=== PATIENT | male | born 1975 | race Caucasian/White ===

== ENCOUNTER 2018-03-10 13:52 | Outpatient (CLI) | payer MEDICAID | END 2018-03-10 13:53 | disposition critical access hospital (66) | LOC: EMS 13:52 | PROVIDERS: ATTEND Surgery | DX: R25.1 Tremor, unspecified (principal); Z72.89 Other problems related to lifestyle | CPT/HCPCS: A0425; A0427 ==

== ENCOUNTER 2018-03-10 14:32 | Inpatient (IN) | payer MEDICAID ==
[2018-03-10] MEDS: LORazepam 2 MG/ML VIAL IVP STA ×2 (14:41→14:47)
[2018-03-10] MEDS ORDERED: THIAMINE INJ 100 MG, FOLIC ACID INJ 1 MG in SODIUM CHLORIDE 0.9% 100ML 100 ML IV STA (14:49)
[2018-03-10] MEDS ORDERED: MULTIVITAMIN 10 ML in SODIUM CHLORIDE 0.9% 1,000 ML IV STA (14:49)
[2018-03-10] MEDS ORDERED: MAGNESIUM SULFATE 2 GRAM 2 GM/50 ML BAG IV STA (14:49)
--- NOTE | 2018-03-10 14:52 | ED Physician Documentation ---
History of Present Illness - Stated complaint Stated Complaint: WITHDRAWL - Chief complaint Chief Complaint: Cardiac - History obtained from History obtained from: Patient, EMS - History of Present Illness Timing: Last night - Additonal information Additional information: 42-year-old alcoholic male has been drinking heavily over the past week. He has been drinking 2 fifths of wisky and gin plus high gravity beer daily. He decided last night to stop drinking he had his last drink about 10 PM and this morning he has had a seizure. He is brought to the hospital by ambulance being quite tremulous and diaphoretic. He states that he has had withdrawal seizure before and that he has had withdrawal hallucinations previously he has had to be detoxed in the hospital more than once. He has had hao psychotic episodes with alcohol withdrawal previously. He is required admission to psychiatric facility. Review of Systems Constitutional: reports: Sweats. denies: Fever Eyes: denies: Decreased vision Ears: denies: Ear pain Nose: denies: Rhinorrhea / runny nose, Congestion Throat: denies: Sore throat Cardiac: denies: Chest pain / pressure, Palpitations Respiratory: denies: Dyspnea, Cough GI: denies: Abdominal Pain, Nausea, Vomiting : denies: Dysuria, Frequency Skin: denies: Rash Musculoskeletal: denies: Neck pain, Back pain, Extremity pain Neurologic: denies: Generalized weakness, Focal weakness, Numbness PD PAST MEDICAL HISTORY - Present Medications Home Medications: Ambulatory Orders Medication Instructions Recorded Confirmed No Known Home Medications [No 03/10/18 03/10/18 Known Home Medications] - Allergies Allergies/Adverse Reactions: Allergies Allergy/AdvReac Type Severity Reaction Status Date / Time No Known Drug Allergies Allergy Verified 03/10/18 14:47 PD ED PE NORMAL - Vitals Vital signs reviewed: Yes (hypertensive ) - General General: Alert and oriented X 3, Well developed/nourished, Other (shaking violently diaphoretic and talking in short sentences interupted by hiccups and burping. ) - HEENT HEENT: Atraumatic, PERRL, EOMI - Neck Neck: Supple, no meningeal sign - Cardiac Cardiac: RRR, No murmur - Respiratory Respiratory: No respiratory distress, Clear bilaterally - Abdomen Abdomen: Soft, Non tender - Back Back: No CVA TTP, No spinal TTP - Derm Derm: Normal color, Warm and dry, Other (diaphoretic) - Extremities Extremities: No deformity, No edema - Neuro Neuro: No motor deficit, No sensory deficit Eye Opening: Spontaneous Motor: Obeys Commands Verbal: Oriented GCS Score: 15 - Psych Psych: Normal mood, Normal affect Results - Vitals Vitals: Vital Signs - 24 hr 03/10/18 03/10/18 14:42 17:03 Temperature 36.3 C L Heart Rate 90 69 Respiratory 18 16 Rate Blood Pressure 132/100 H 145/94 H O2 Saturation 98 96 Oxygen O2 Source Room air - Labs Labs: Laboratory Tests 03/10/18 03/10/18 03/10/18 14:50 15:07 15:07 WBC 6.1 RBC 4.39 L Hgb 14.3 Hct 41.3 L MCV 94.1 H MCH 32.6 H MCHC 34.6 RDW 13.2 Plt Count 158 MPV 8.1 Neut # 4.8 Lymph # 0.6 L Dane # 0.6 Eos # 0.0 Baso # 0.0 Absolute Nucleated RBC 0.00 Nucleated RBC % 0.1 Sodium 134 L Potassium 3.4 L Chloride 99 L Carbon Dioxide 24 Anion Gap 11.0 BUN 18 Creatinine 0.8 Estimated GFR (MDRD) 105 Glucose 118 H Calcium 8.8 Total Bilirubin 2.3 H AST 227 H ALT 198 H Alkaline Phosphatase 44 Troponin I < 0.04 Total Protein 6.8 Albumin 4.5 Globulin 2.3 Albumin/Globulin Ratio 2.0 Lipase 38 Salicylates < 6.0 Acetaminophen < 10 L Ethyl Alcohol < 5.0 PD MEDICAL DECISION MAKING - ED course Complexity details: reviewed old records, reviewed results, re-evaluated patient , considered differential, d/w patient, d/w family ED course: 42-year-old alcoholic male with a prior history of severe DTs with withdrawal has had a seizure today after stopping drinking last night. He arrives to the emergency department shaking and diaphoretic. He is administered Ativan 2 mg intravenously with marked improvement in his shaking but he continues to have visual hallucinations. He is administered a banana bag intravenously. He is accompanied here by his mother today who indicates that previously he has required inpatient detoxification and outpatient detoxification has resulted in some precarious moments. Departure - Departure Disposition: 66 [facility] DC/Xfer Clinical Impression: Alcohol withdrawal delirium, acute, hyperactive Condition: Serious
[2018-03-10 15:47] LABS: BASOPHILS % (AUTO) 0.6 %; EOSINOPHILS % (AUTO) 0.5 %; HGB - HEMOGLOBIN 14.3 g/dL (14.0-18.0); LYMPHOCYTES # (AUTO) 0.6 10^3/uL (1.5-3.5); LYMPHOCYTES % (AUTO) 9.4 %; MEAN CORPUSCULAR HEMOGLOBIN 32.6 pg (27.0-31.0); MEAN CORPUSCULAR HGB CONC 34.6 g/dL (32.0-36.0); MEAN CORPUSCULAR VOLUME 94.1 fL (80.0-94.0); MEAN PLATELET VOLUME 8.1 fL (7.4-11.4); MONOCYTES # (AUTO) 0.6 10^3/uL (0.0-1.0); MONOCYTES % (AUTO) 10.5 %; NEUTROPHILS # (AUTO) 4.8 10^3/uL (1.5-6.6); PLT - PLATELET COUNT 158 10^3/uL (130-450); RED BLOOD COUNT 4.39 10^6/uL (4.70-6.10); RED CELL DISTRIBUTION WIDTH 13.2 % (12.0-15.0); WHITE BLOOD COUNT 6.1 x10^3/uL (4.8-10.8)
[2018-03-10 16:13] LABS: ALBUMIN 4.5 g/dL (3.2-5.5); ALKALINE PHOSPHATASE 44 IU/L (42-121); ALT ALANINE AMINOTRANSFERASE 198 IU/L (10-60); AST ASPARTATE AMINOTRANSFERASE 227 IU/L (10-42); BILIRUBIN,TOTAL 2.3 mg/dL (0.2-1.0); BUN - BLOOD UREA NITROGEN 18 mg/dL (6-20); CALCIUM 8.8 mg/dL (8.5-10.3); CARBON DIOXIDE - CO2 24 mmol/L (21-32); CHLORIDE 99 mmol/L (101-111); CREATININE 0.8 mg/dL (0.6-1.2); GFR - MDRD 105 (>89); GLUCOSE 118 mg/dL (70-100); LIPASE 38 U/L (22-51); SALICYLATE < 6.0 mg/dL; SODIUM 134 mmol/L (135-145); TOTAL PROTEIN 6.8 g/dL (6.7-8.2)
[2018-03-10 16:32] LABS: ACETAMINOPHEN < 10 ug/mL (10-30)
[2018-03-10] MEDS ORDERED: PROCHLORPERAZINE 10 MG/2 ML VIAL IVP PRN (17:48)
[2018-03-10 18:16] LABS: INR 0.9 (0.8-1.2); PT - PROTHROMBIN TIME 10.7 secs (9.9-12.6)
[2018-03-10] MEDS: D5NS W/20 MEQ KCL 1,000 ML IV SCH (18:24)
[2018-03-10] MEDS: LORazepam 2 MG/ML VIAL IVP PRN ×5 (20:50→23:38)
[2018-03-10 21:50] LABS: MUDS CUTOFF CONCENTRATIONS CUTOFF CONC BELOW:
[2018-03-10 21:54] LABS: BILIRUBIN,URINE NEGATIVE (NEGATIVE); GLUCOSE, URINE (UA) NEGATIVE (NEGATIVE); KETONES,URINE (UA) 15 mg/dL (NEGATIVE); LEUKOCYTE ESTERASE, URINE NEGATIVE (NEGATIVE); NITRITE,URINE NEGATIVE (NEGATIVE); OCCULT BLOOD,URINE NEGATIVE (NEGATIVE); PH,URINE >=9.0 PH (5.0-7.5); PROTEIN,URINE TRACE mg/dL (NEGATIVE); UROBILINOGEN,URINE 2 E.U./dL (NORMAL)
[2018-03-10 22:04] LABS: CLARITY,URINE CLOUDY (CLEAR)
[2018-03-10] MEDS: PANTOPRAZOLE 40 MG VIAL IVP SCH (22:04)
[2018-03-10 22:10] LABS: AMORPHOUS SEDIMENT,UR Moderate /LPF; BACTERIA,URINE Few /HPF (None Seen); RBC,URINE None Seen /HPF (0-5); SQUAMOUS EPITHELIAL CELL,UR NONE SEEN (<= Few)
[2018-03-10 22:11] LABS: MUCUS,URINE Few Strands
[2018-03-10 22:21] LABS: AMPHETAMINE SCREEN,URINE NEGATIVE (NEGATIVE); BENZODIAZEPINES SCREEN, URINE POSITIVE (NEGATIVE); COCAINE SCREEN URINE NEGATIVE (NEGATIVE); METHAMPHETAMINES SCREEN, URINE NEGATIVE (NEGATIVE); OPIATE SCREEN, URINE NEGATIVE (NEGATIVE)
[2018-03-10 22:22] LABS: METHADONE SCREEN, URINE NEGATIVE (NEGATIVE); OXYCODONE SCREEN, URINE NEGATIVE (NEGATIVE); PROPOXYPHENE SCREEN, URINE NEGATIVE (NEGATIVE); TRICYCLIC ANTIDEPRESSANT,URINE NEGATIVE (NEGATIVE)
[2018-03-11] MEDS: LORazepam 2 MG/ML VIAL IVP PRN ×13 (00:13→22:22)
--- NOTE | 2018-03-11 00:59 | HISTORY & PHYSICAL EXAMINATION ---
DATE OF SERVICE: 03/10/2018 Physician: Mercedes Avalos MD HISTORY OF PRESENT ILLNESS: This is a 42-year-old white male with a negative past medical history except alcohol abuse and prior alcohol withdrawal with seizures requiring hospitalization. The patient has had binge drinking for the past 1 week, drinking all day with no other nutritional intake, and he decided yesterday that "enough is enough." He was actually "hiding from his family while drinking. Therefore, he knew he had to stop." He stopped drinking completely, had his last drink at 10 p.m. yesterday and today has been tremulous , has had visual hallucinations and had a witnessed seizure. His mother accompanies him to the emergency room and states that he has had seizures before and that he requires detoxification in the hospital. According to her statement in the ER, he has had "hao psychotic episodes during alcohol withdrawal previously." PAST MEDICAL HISTORY: Alcoholism and alcohol withdrawal, including alcohol withdrawal seizures. MEDICATIONS AT HOME: None. ALLERGIES: NONE. FAMILY HISTORY: No inherited diseases. SOCIAL HISTORY: Heavy alcohol use, which includes 2 fifths of whiskey, gin and high-gravity beer daily. Nonsmoker; he quit 4 years ago. No illicit drug use. REVIEW OF SYSTEMS: The patient currently describes a burning sensation in the back of his throat and upper chest area with swallowing. He currently has hiccups. There is no abdominal pain, no diarrhea or melena. He denies shortness of breath or cardiac symptoms , even palpitations. A comprehensive review of systems was performed, from the patient, and all other organs are negative. PHYSICAL EXAMINATION GENERAL: Middle-aged white male who is having hiccups. He appears excessively tanned. He is in no distress currently. VITAL SIGNS: Blood pressure 150/90, heart rate 65-75 in sinus rhythm, afebrile , room air saturation 97%. HEENT: Reveals dry oral mucosa and tongue. NECK: Without lymphadenopathy, JVD, or carotid bruits. LUNGS: Clear. HEART: Sounds normal. ABDOMEN: Soft, nontender. No organomegaly. EXTREMITIES: No edema. NEUROLOGIC: Intact currently, but there were hallucinations earlier today as well as a seizure earlier today. LABORATORY DATA: Sodium 134, potassium 3.4, BUN 18, creatinine 0.8, AST 227, ALT 198, bilirubin 2.3. Lipase normal at 38. Troponin not detected at less than 0.04. INR is normal at 0.9. White blood count and differential normal. Hemoglobin 14.3 with a high MCV of 94. Platelet count normal at 158. Serum toxicology showed no detectable aspirin, Tylenol, or alcohol level. No EKG was done. No chest x-ray was done. IMPRESSION/DIAGNOSES 1. Alcohol withdrawal seizures. 2. Alcohol abuse with elevation of liver function tests and bilirubin but normal INR. 3. Evidence of dehydration on clinical exam. PLAN: 1. Admit the patient to the ICU given the seizures and start close monitoring, [id number] vital sign and neurologic checks. 2. Put him on a CIWA protocol and administer Ativan liberally for 48-72 hours to get him through his alcohol detoxification. The Ativan will also help his hiccups. 3. Begin IV fluids. Oral diet will be ice chips only if he is somnolent, otherwise, advance his diet as tolerated. 4. Follow his liver tests and electrolytes daily. 5. Replace potassium, thiamine, and folate. 6. Social work consultation for alcohol rehabilitation. DEEP VENOUS THROMBOSIS PROPHYLAXIS: SCDs. CODE STATUS: FULL CODE. ATTESTATION: The patient is expected to be discharged or transferred to another facility within 96 hours: Yes. TD: 03/10/2018 20:37 JOSEPH
[2018-03-11] MEDS: SODIUM CHLORIDE FLUSH 0.9% 10 ML SYRINGE IVP SCH ×3 (01:08→17:02)
[2018-03-11] MEDS: HYDROmorphone 0.5 MG/0.5 ML SYRINGE IVP PRN ×2 (01:34→11:30)
[2018-03-11] MEDS: D5NS W/20 MEQ KCL 1,000 ML IV SCH ×3 (02:17→19:36)
[2018-03-11 05:10] LABS: EOSINOPHILS # (AUTO) 0.3 10^3/uL (0.0-0.7); HGB - HEMOGLOBIN 13.4 g/dL (14.0-18.0); LYMPHOCYTES % (AUTO) 21.5 %; MEAN CORPUSCULAR HEMOGLOBIN 31.8 pg (27.0-31.0); MEAN CORPUSCULAR HGB CONC 33.2 g/dL (32.0-36.0); MEAN CORPUSCULAR VOLUME 95.8 fL (80.0-94.0); MEAN PLATELET VOLUME 8.1 fL (7.4-11.4); MONOCYTES # (AUTO) 0.4 10^3/uL (0.0-1.0); MONOCYTES % (AUTO) 8.3 %; NEUTROPHILS # (AUTO) 2.8 10^3/uL (1.5-6.6); NEUTROPHILS % (AUTO) 62.2 %; PLT - PLATELET COUNT 122 10^3/uL (130-450); RED BLOOD COUNT 4.22 10^6/uL (4.70-6.10); RED CELL DISTRIBUTION WIDTH 13.2 % (12.0-15.0); WHITE BLOOD COUNT 4.5 x10^3/uL (4.8-10.8)
[2018-03-11 05:14] LABS: INR 0.9 (0.8-1.2); PT - PROTHROMBIN TIME 10.6 secs (9.9-12.6)
[2018-03-11 05:19] LABS: ALBUMIN 3.9 g/dL (3.2-5.5); BILIRUBIN,TOTAL 1.8 mg/dL (0.2-1.0); CALCIUM 8.3 mg/dL (8.5-10.3); CREATININE 0.7 mg/dL (0.6-1.2); MAGNESIUM 2.6 mg/dL (1.7-2.8); TOTAL PROTEIN 5.9 g/dL (6.7-8.2)
[2018-03-11] MEDS: THIAMINE INJ 100 MG, FOLIC ACID INJ 1 MG in SODIUM CHLORIDE 0.9% 100ML 100 ML IV SCH (09:05)
[2018-03-11] MEDS: PANTOPRAZOLE 40 MG VIAL IVP SCH ×2 (09:27→21:00)
[2018-03-11] MEDS: PRENATAL VITAMIN TABLET PO SCH (09:30)
--- NOTE | 2018-03-11 16:47 | PROVIDER PROGRESS NOTE ---
Assessment/Plan - Problem List (1) Alcohol withdrawal delirium, acute, hyperactive Assessment/Plan: Pt on a CIWA protocol. Is sleeping, after Ativan. Continue to monitor. Pt was given some contacts for outpt management of Alcoholism. (2) Alcohol withdrawal seizure Assessment/Plan: No further seizures since admitted to ICU. (3) Abnormal LFTs Assessment/Plan: Likely from alcohol use, as there are no signs of obstruction clibnically. Continue to monitor labs. - Current Meds Current Meds: Current Medications Generic Name Dose Route Start Last Admin Trade Name Freq PRN Reason Stop Dose Admin Hydromorphone HCl 0.5 mg 03/10/18 17:48 03/11/18 11:30 Dilaudid Inj Syringe IVP 0.5 mg Q2H PRN Administration Pain 8 to 10 Potassium Chloride/Dextrose/Sod Cl 1,000 mls @ 125 mls/hr 03/10/18 18:00 16:00 IV 125 mls/hr .Q8H LIDA Infusion Thiamine HCl 100 mg/ Folic 101.2 mls @ 50.6 mls/hr 03/11/18 09:00 03/11/18 11 :05 Acid 1 mg/ Sodium Chloride IV Infused DAILY L[facility] Infusion Lorazepam 2 mg 03/10/18 17:56 03/11/18 05:07 Ativan Inj (Vial) IVP 2 mg Q30M PRN Administration CIWA >8 Protocol Pantoprazole Sodium 40 mg 03/10/18 21:00 03/11/18 09:27 Protonix IVP 40 mg BID LIDA Administration Multivit/Folic Acid/Iron 1 tab 03/11/18 09:00 03/11/18 09:30 Trinatal Rx 1 PO 1 tab DAILY LIDA Administration Prochlorperazine Edisylate 10 mg 03/10/18 17:48 03/11/18 03:27 Compazine Inj IVP 10 mg Q6HR PRN Administration Nausea / Vomiting Sodium Chloride 10 ml 03/11/18 01:00 03/11/18 09:06 Normal Saline Flush 0.9% IVP 10 ml 0100,0900,1700 LIDA Administration - Lab Result Fish Bone Diagrams: 03/11/18 04:55 03/11/18 04:55 - Additional Planning My Orders: My Active Orders 03/10/18 17:56 LORazepam INJ [Ativan Inj (Vial)] 2 mg IVP Q30M PRN 03/10/18 17:57 CIWA - AR Score Card [RC] Q2H Q2H Neuro Check [RC] QSHIFT QSHIFT 03/11/18 09:00 Vitamin [Trinatal Rx 1] 1 tab PO DAILY Thiamine Inj [Vitamin B-1 Inj] 100 mg Folic Acid Inj 1 mg Sodium Chloride 0.9 % 100Ml [Normal Saline 0.9% 100Ml] 100 ml IV DAILY 03/11/18 Lunch DIET [Soft (Low Fiber) Diet] [DIET] Subjective - Subjective Patient Reports: Other (Sleeping) Nursing Reports: Other (Hiccups have stopped. Pt too sleepy to try a meal.) Objective Vital Signs: Vital Signs - 24 hr 03/10/18 03/10/18 03/10/18 18:00 18:30 18:55 Temperature 37 C Heart Rate 69 72 66 Heart Rate [ Monitoring electrodes] Respiratory 20 16 17 Rate Blood Pressure 147/91 H 148/86 H 150/89 H Blood Pressure [Right Brachial artery] O2 Saturation 97 97 97 03/10/18 03/10/18 03/10/18 20:00 22:00 23:00 Temperature 36.8 C Heart Rate Heart Rate [ 65 75 73 Monitoring electrodes] Respiratory 17 21 20 Rate Blood Pressure Blood Pressure 164/101 H 150/104 H 158/92 H [Right Brachial artery] O2 Saturation 98 97 97 03/11/18 03/11/18 03/11/18 00:00 01:00 02:00 Temperature 36.7 C Heart Rate Heart Rate [ 69 73 78 Monitoring electrodes] Respiratory 22 26 H 16 Rate Blood Pressure Blood Pressure 173/109 H 152/94 H 154/88 H [Right Brachial artery] O2 Saturation 97 97 99 03/11/18 03/11/18 03/11/18 03:00 04:00 05:00 Temperature 36.8 C Heart Rate Heart Rate [ 72 78 72 Monitoring electrodes] Respiratory 17 24 17 Rate Blood Pressure Blood Pressure 158/94 H 133/92 H 137/91 H [Right Brachial artery] O2 Saturation 97 95 97 03/11/18 03/11/18 03/11/18 06:00 07:00 08:00 Temperature 36.7 C Heart Rate Heart Rate [ 70 72 75 Monitoring electrodes] Respiratory 23 23 21 Rate Blood Pressure Blood Pressure 134/92 H 135/95 H 142/101 H [Right Brachial artery] O2 Saturation 96 97 96 03/11/18 03/11/18 03/11/18 09:00 10:00 11:00 Temperature Heart Rate Heart Rate [ 79 69 70 Monitoring electrodes] Respiratory 21 21 25 H Rate Blood Pressure Blood Pressure 140/97 H 157/105 H 160/111 H [Right Brachial artery] O2 Saturation 98 98 98 03/11/18 03/11/18 03/11/18 12:00 13:00 14:00 Temperature 36.7 C Heart Rate Heart Rate [ 73 75 67 Monitoring electrodes] Respiratory 23 20 18 Rate Blood Pressure Blood Pressure 141/92 H 142/95 H 146/106 H [Right Brachial artery] O2 Saturation 96 98 96 03/11/18 03/11/18 15:00 16:00 Temperature Heart Rate Heart Rate [ 67 59 L Monitoring electrodes] Respiratory 14 18 Rate Blood Pressure Blood Pressure 139/101 H 142/103 H [Right Brachial artery] O2 Saturation 96 96 Oxygen O2 Source Room air I&O (Last 24 Hrs): Intake and Output Totals x24h 03/09/18 03/10/18 03/11/18 23:59 23:59 23:59 Intake Total 1585 2149.065 Output Total 1200 1475 Balance 385 674.065 General: Other (Somnolent) HEENT: Mucous membr. moist/pink Neck: Supple Cardiovascular: Regular rate, No murmurs Respiratory: No respiratory distress Abdomen: Soft Extremities: No edema - Results Results: Laboratory Results WBC 4.5 x10^3/uL (4.8-10.8) L 03/11/18 04:55 RBC 4.22 10^6/uL (4.70-6.10) L 03/11/18 04:55 Hgb 13.4 g/dL (14.0-18.0) L 03/11/18 04:55 Hct 40.4 % (42.0-52.0) L 03/11/18 04:55 MCV 95.8 fL (80.0-94.0) H 03/11/18 04:55 MCH 31.8 pg (27.0-31.0) H 03/11/18 04:55 MCHC 33.2 g/dL (32.0-36.0) 03/11/18 04:55 RDW 13.2 % (12.0-15.0) 03/11/18 04:55 Plt Count 122 10^3/uL (130-450) L 03/11/18 04:55 MPV 8.1 fL (7.4-11.4) 03/11/18 04:55 Neut # 2.8 10^3/uL (1.5-6.6) 03/11/18 04:55 Lymph # 1.0 10^3/uL (1.5-3.5) L 03/11/18 04:55 Rush # 0.4 10^3/uL (0.0-1.0) 03/11/18 04:55 Eos # 0.3 10^3/uL (0.0-0.7) 03/11/18 04:55 Baso # 0.0 10^3/uL (0.0-0.1) 03/11/18 04:55 Absolute Nucleated RBC 0.00 x10^3/uL 03/11/18 04:55 Nucleated RBC % 0.0 /100WBC 03/11/18 04:55 PT 10.6 secs (9.9-12.6) 03/11/18 04:55 INR 0.9 (0.8-1.2) 03/11/18 04:55 Sodium 137 mmol/L (135-145) 03/11/18 04:55 Potassium 3.8 mmol/L (3.5-5.0) 03/11/18 04:55 Chloride 105 mmol/L (101-111) 03/11/18 04:55 Carbon Dioxide 24 mmol/L (21-32) 03/11/18 04:55 Anion Gap 8.0 (6-13) 03/11/18 04:55 BUN 15 mg/dL (6-20) 03/11/18 04:55 Creatinine 0.7 mg/dL (0.6-1.2) 03/11/18 04:55 Estimated GFR (MDRD) 123 (>89) 03/11/18 04:55 Glucose 122 mg/dL (70-100) H 03/11/18 04:55 Calcium 8.3 mg/dL (8.5-10.3) L 03/11/18 04:55 Magnesium 2.6 mg/dL (1.7-2.8) 03/11/18 04:55 Total Bilirubin 1.8 mg/dL (0.2-1.0) H 03/11/18 04:55 GGT 55 IU/L (8-55) 03/11/18 04:55 AST 155 IU/L (10-42) H 03/11/18 04:55 ALT 165 IU/L (10-60) H 03/11/18 04:55 Alkaline Phosphatase 40 IU/L (42-121) L 03/11/18 04:55 Troponin I < 0.04 ng/mL (<0.49) 03/10/18 15:07 Total Protein 5.9 g/dL (6.7-8.2) L 03/11/18 04:55 Albumin 3.9 g/dL (3.2-5.5) 03/11/18 04:55 Globulin 2.0 g/dL (2.1-4.2) L 03/11/18 04:55 Albumin/Globulin Ratio 2.0 (1.0-2.2) 03/11/18 04:55 Lipase 38 U/L (22-51) 03/10/18 15:07 Urine Color YELLOW 03/10/18 20:00 Urine Clarity CLOUDY (CLEAR) 03/10/18 20:00 Urine pH >=9.0 PH (5.0-7.5) H 03/10/18 20:00 Ur Specific [place] 1.010 (1.002-1.030) 03/10/18 20:00 Urine Protein TRACE mg/dL (NEGATIVE) 03/10/18 20:00 Urine Glucose (UA) NEGATIVE mg/dL (NEGATIVE) 03/10/18 20:00 Urine Ketones 15 mg/dL (NEGATIVE) H 03/10/18 20:00 Urine Occult Blood NEGATIVE (NEGATIVE) 03/10/18 20:00 Urine Nitrite NEGATIVE (NEGATIVE) 03/10/18 20:00 Urine Bilirubin NEGATIVE (NEGATIVE) 03/10/18 20:00 Urine Urobilinogen 2 E.U./dL (NORMAL) H 03/10/18 20:00 Ur Leukocyte Esterase NEGATIVE (NEGATIVE) 03/10/18 20:00 Urine RBC None Seen /HPF (0-5) 03/10/18 20:00 Urine WBC 0-3 /HPF (0-3) 03/10/18 20:00 Ur Squamous Epith Cells NONE SEEN (<= Few) 03/10/18 20:00 Amorphous Sediment Moderate /LPF 03/10/18 20:00 Urine Bacteria Few /HPF (None Seen) 03/10/18 20:00 Urine Mucus Few Strands 03/10/18 20:00 Ur Microscopic Review INDICATED 03/10/18 20:00 Urine Culture Comments NOT INDICATED 03/10/18 20:00 Salicylates < 6.0 mg/dL 03/10/18 15:07 Urine Opiates Screen NEGATIVE (NEGATIVE) 03/10/18 20:00 Ur Oxycodone Screen NEGATIVE (NEGATIVE) 03/10/18 20:00 Urine Methadone Screen NEGATIVE (NEGATIVE) 03/10/18 20:00 Ur Propoxyphene Screen NEGATIVE (NEGATIVE) 03/10/18 20:00 Acetaminophen < 10 ug/mL (10-30) L 03/10/18 15:07 Ur Barbiturates Screen NEGATIVE (NEGATIVE) 03/10/18 20:00 Ur Tricyclics Screen NEGATIVE (NEGATIVE) 03/10/18 20:00 Ur Phencyclidine Scrn NEGATIVE (NEGATIVE) 03/10/18 20:00 Ur Amphetamine Screen NEGATIVE (NEGATIVE) 03/10/18 20:00 U Methamphetamines Scrn NEGATIVE (NEGATIVE) 03/10/18 20:00 U Benzodiazepines Scrn POSITIVE (NEGATIVE) H 03/10/18 20:00 Urine Cocaine Screen NEGATIVE (NEGATIVE) 03/10/18 20:00 U Cannabinoids Screen NEGATIVE (NEGATIVE) 03/10/18 20:00 Ethyl Alcohol < 5.0 mg/dL 03/10/18 15:07 ABX Reporting Has patient been on IV antibiotics over the past 48 hours?: No
[2018-03-11] MEDS: hydrALAZINE INJ 20 MG/ML VIAL IVP SCH ×2 (17:25→21:00)
[2018-03-12] MEDS: LORazepam 2 MG/ML VIAL IVP PRN ×4 (00:25→05:50)
[2018-03-12] MEDS: SODIUM CHLORIDE FLUSH 0.9% 10 ML SYRINGE IVP SCH ×4 (01:09→21:03)
[2018-03-12] MEDS: HYDROmorphone 0.5 MG/0.5 ML SYRINGE IVP PRN (01:55)
[2018-03-12] MEDS: D5NS W/20 MEQ KCL 1,000 ML IV SCH ×5 (03:49→21:07)
[2018-03-12 04:35] LABS: BASOPHILS # (AUTO) 0.2 10^3/uL (0.0-0.1); BASOPHILS % (AUTO) 3.5 %; EOSINOPHILS # (AUTO) 0.4 10^3/uL (0.0-0.7); EOSINOPHILS % (AUTO) 9.4 %; HGB - HEMOGLOBIN 14.2 g/dL (14.0-18.0); LYMPHOCYTES # (AUTO) 0.7 10^3/uL (1.5-3.5); MEAN CORPUSCULAR HGB CONC 33.6 g/dL (32.0-36.0); MEAN CORPUSCULAR VOLUME 95.1 fL (80.0-94.0); MEAN PLATELET VOLUME 8.3 fL (7.4-11.4); MONOCYTES # (AUTO) 0.4 10^3/uL (0.0-1.0); MONOCYTES % (AUTO) 9.1 %; NEUTROPHILS # (AUTO) 2.7 10^3/uL (1.5-6.6); PLT - PLATELET COUNT 118 10^3/uL (130-450); RED BLOOD COUNT 4.45 10^6/uL (4.70-6.10); RED CELL DISTRIBUTION WIDTH 13.1 % (12.0-15.0); WHITE BLOOD COUNT 4.4 x10^3/uL (4.8-10.8)
[2018-03-12 04:43] LABS: ALBUMIN/GLOBULIN RATIO 1.7 (1.0-2.2); BILIRUBIN,TOTAL 1.3 mg/dL (0.2-1.0); CALCIUM 8.8 mg/dL (8.5-10.3); CREATININE 0.6 mg/dL (0.6-1.2); MAGNESIUM 2.1 mg/dL (1.7-2.8); TOTAL PROTEIN 6.3 g/dL (6.7-8.2)
[2018-03-12] MEDS: PRENATAL VITAMIN TABLET PO SCH (08:51)
[2018-03-12] MEDS: SODIUM CHLORIDE FLUSH 0.9% 10 ML SYRINGE IVP PRN ×2 (08:52→21:03)
[2018-03-12] MEDS: PANTOPRAZOLE 40 MG VIAL IVP SCH ×2 (08:52→21:02)
[2018-03-12] MEDS: hydrALAZINE INJ 20 MG/ML VIAL IVP SCH ×2 (09:10→21:02)
[2018-03-12] MEDS: THIAMINE INJ 100 MG, FOLIC ACID INJ 1 MG in SODIUM CHLORIDE 0.9% 100ML 100 ML IV SCH (10:11)
--- NOTE | 2018-03-12 14:03 | PROVIDER PROGRESS NOTE ---
Assessment/Plan - Problem List (1) Alcohol withdrawal delirium, acute, hyperactive Assessment/Plan: Pt still received Ativan due to hallucinations, therefore is somnolent. Will continue iv hydration. (2) Alcohol withdrawal seizure Assessment/Plan: None further (3) Abnormal LFTs Assessment/Plan: Improving off EtOh - Current Meds Current Meds: Current Medications Generic Name Dose Route Start Last Admin Trade Name Freq PRN Reason Stop Dose Admin Hydralazine HCl 10 mg 03/11/18 17:13 03/12/18 09:10 Apresoline Inj IVP 10 mg BID LIDA Administration Hydromorphone HCl 0.5 mg 03/10/18 17:48 03/12/18 01:55 Dilaudid Inj Syringe IVP 0.5 mg Q2H PRN Administration Pain 8 to 10 Potassium Chloride/Dextrose/Sod Cl 1,000 mls @ 125 mls/hr 03/10/18 18:00 13:00 IV 125 mls/hr .Q8H LIDA Infusion Thiamine HCl 100 mg/ Folic 101.2 mls @ 50.6 mls/hr 03/11/18 09:00 03/12/18 12 :12 Acid 1 mg/ Sodium Chloride IV Infused DAILY LIDA Infusion Lorazepam 2 mg 03/10/18 17:56 03/12/18 05:50 Ativan Inj (Vial) IVP 2 mg Q30M PRN Administration CIWA >8 Protocol Pantoprazole Sodium 40 mg 03/10/18 21:00 03/12/18 08:52 Protonix IVP 40 mg BID LIDA Administration Multivit/Folic Acid/Iron 1 tab 03/11/18 09:00 03/12/18 08:51 Trinatal Rx 1 PO 1 tab DAILY LIDA Administration Prochlorperazine Edisylate 10 mg 03/10/18 17:48 03/11/18 03:27 Compazine Inj IVP 10 mg Q6HR PRN Administration Nausea / Vomiting Sodium Chloride 10 ml 03/11/18 01:00 03/12/18 09:59 Normal Saline Flush 0.9% IVP Not Given 0100,0900,1700 LIDA Sodium Chloride 10 ml 03/10/18 17:48 03/12/18 08:52 Normal Saline Flush 0.9% IVP 30 ml PRN PRN Administration NEEDED PER PROVIDER ORDERS - Lab Result Fish Bone Diagrams: 03/12/18 04:15 03/12/18 04:15 - Additional Planning My Orders: My Active Orders 03/11/18 17:13 hydrALAZINE INJ [Apresoline Inj] 10 mg IVP BID Subjective - Subjective Patient Reports: Feeling Better Nursing Reports: Other (Sat in chair, but mostly sleeping in bed.) Objective Vital Signs: Vital Signs - 24 hr 03/11/18 03/11/18 03/11/18 15:00 16:00 17:00 Temperature Heart Rate [ 67 59 L 64 Monitoring electrodes] Respiratory 14 18 19 Rate Blood Pressure Blood Pressure 139/101 H 142/103 H 153/98 H [Right Brachial artery] O2 Saturation 96 96 97 03/11/18 03/11/18 03/11/18 17:30 17:35 17:40 Temperature Heart Rate [ 75 68 76 Monitoring electrodes] Respiratory Rate Blood Pressure Blood Pressure 138/95 H 136/96 H 133/95 H [Right Brachial artery] O2 Saturation 03/11/18 03/11/18 03/11/18 18:01 18:43 19:00 Temperature Heart Rate [ 66 68 71 Monitoring electrodes] Respiratory 15 24 Rate Blood Pressure Blood Pressure 147/91 H 122/80 130/80 [Right Brachial artery] O2 Saturation 96 97 03/11/18 03/11/18 03/11/18 20:00 21:00 21:07 Temperature 37.4 C Heart Rate [ 72 69 70 Monitoring electrodes] Respiratory 21 19 Rate Blood Pressure 131/75 H Blood Pressure 142/86 H 131/75 H 134/91 H [Right Brachial artery] O2 Saturation 98 98 03/11/18 03/11/18 03/11/18 21:14 21:16 22:00 Temperature Heart Rate [ 73 73 86 Monitoring electrodes] Respiratory 21 Rate Blood Pressure Blood Pressure 137/85 H 141/87 H 129/73 [Right Brachial artery] O2 Saturation 97 03/11/18 03/12/18 03/12/18 23:00 00:00 01:00 Temperature 37.4 C Heart Rate [ 85 89 79 Monitoring electrodes] Respiratory 22 16 22 Rate Blood Pressure Blood Pressure 136/91 H 134/95 H 139/90 H [Right Brachial artery] O2 Saturation 96 98 97 03/12/18 03/12/18 03/12/18 02:00 03:00 03:59 Temperature 37.0 C Heart Rate [ 101 H 71 72 Monitoring electrodes] Respiratory 16 20 19 Rate Blood Pressure Blood Pressure 133/92 H 119/93 H [Right Brachial artery] O2 Saturation 98 97 98 03/12/18 03/12/18 03/12/18 04:01 05:00 06:00 Temperature Heart Rate [ 69 71 Monitoring electrodes] Respiratory 20 21 Rate Blood Pressure Blood Pressure 128/91 H 124/80 129/94 H [Right Brachial artery] O2 Saturation 98 97 03/12/18 03/12/18 03/12/18 06:57 08:00 09:00 Temperature 36.8 C Heart Rate [ 72 77 93 Monitoring electrodes] Respiratory 23 19 Rate Blood Pressure Blood Pressure 133/88 H 131/97 H 140/99 H [Right Brachial artery] O2 Saturation 97 97 03/12/18 03/12/18 03/12/18 09:11 09:12 09:17 Temperature Heart Rate [ 94 93 97 Monitoring electrodes] Respiratory 23 Rate Blood Pressure Blood Pressure 132/86 H 125/91 H 128/87 H [Right Brachial artery] O2 Saturation 98 03/12/18 03/12/18 03/12/18 09:20 09:25 09:30 Temperature Heart Rate [ 94 97 97 Monitoring electrodes] Respiratory Rate Blood Pressure Blood Pressure 132/83 H 137/89 H 127/95 H [Right Brachial artery] O2 Saturation 03/12/18 03/12/18 03/12/18 09:45 10:00 11:00 Temperature 36.8 C Heart Rate [ 106 H 94 85 Monitoring electrodes] Respiratory 23 17 Rate Blood Pressure Blood Pressure 132/83 H 131/75 H 116/90 H [Right Brachial artery] O2 Saturation 100 99 03/12/18 03/12/18 12:00 13:00 Temperature Heart Rate [ 82 85 Monitoring electrodes] Respiratory 20 17 Rate Blood Pressure Blood Pressure 125/78 135/96 H [Right Brachial artery] O2 Saturation 98 97 Oxygen O2 Source Room air I&O (Last 24 Hrs): Intake and Output Totals x24h 03/10/18 03/11/18 03/12/18 23:59 23:59 23:59 Intake Total 1585 2679.065 2369.117 Output Total 1200 3000 1475 Balance 385 -320.935 894.117 General: Other (Lethargic, awakens.) HEENT: Other (Dry oral mucosa.) Neck: Supple Cardiovascular: Regular rate, No murmurs Respiratory: No respiratory distress Abdomen: Soft Extremities: No edema - Results Results: Laboratory Results WBC 4.4 x10^3/uL (4.8-10.8) L 03/12/18 04:15 RBC 4.45 10^6/uL (4.70-6.10) L 03/12/18 04:15 Hgb 14.2 g/dL (14.0-18.0) 03/12/18 04:15 Hct 42.4 % (42.0-52.0) 03/12/18 04:15 MCV 95.1 fL (80.0-94.0) H 03/12/18 04:15 MCH 32.0 pg (27.0-31.0) H 03/12/18 04:15 MCHC 33.6 g/dL (32.0-36.0) 03/12/18 04:15 RDW 13.1 % (12.0-15.0) 03/12/18 04:15 Plt Count 118 10^3/uL (130-450) L 03/12/18 04:15 MPV 8.3 fL (7.4-11.4) 03/12/18 04:15 Neut # 2.7 10^3/uL (1.5-6.6) 03/12/18 04:15 Lymph # 0.7 10^3/uL (1.5-3.5) L 03/12/18 04:15 [place] # 0.4 10^3/uL (0.0-1.0) 03/12/18 04:15 Eos # 0.4 10^3/uL (0.0-0.7) 03/12/18 04:15 Baso # 0.2 10^3/uL (0.0-0.1) H 03/12/18 04:15 Absolute Nucleated RBC 0.00 x10^3/uL 03/12/18 04:15 Nucleated RBC % 0.0 /100WBC 03/12/18 04:15 PT 10.6 secs (9.9-12.6) 03/11/18 04:55 INR 0.9 (0.8-1.2) 03/11/18 04:55 Sodium 135 mmol/L (135-145) 03/12/18 04:15 Potassium 4.0 mmol/L (3.5-5.0) 03/12/18 04:15 Chloride 105 mmol/L (101-111) 03/12/18 04:15 Carbon Dioxide 22 mmol/L (21-32) 03/12/18 04:15 Anion Gap 8.0 (6-13) 03/12/18 04:15 BUN 7 mg/dL (6-20) 03/12/18 04:15 Creatinine 0.6 mg/dL (0.6-1.2) 03/12/18 04:15 Estimated GFR (MDRD) 146 (>89) 03/12/18 04:15 Glucose 116 mg/dL (70-100) H 03/12/18 04:15 Calcium 8.8 mg/dL (8.5-10.3) 03/12/18 04:15 Phosphorus 3.2 mg/dL (2.5-4.6) 03/12/18 04:15 Magnesium 2.1 mg/dL (1.7-2.8) 03/12/18 04:15 Total Bilirubin 1.3 mg/dL (0.2-1.0) H 03/12/18 04:15 GGT 55 IU/L (8-55) 03/11/18 04:55 AST 166 IU/L (10-42) H 03/12/18 04:15 ALT 186 IU/L (10-60) H 03/12/18 04:15 Alkaline Phosphatase 48 IU/L (42-121) 03/12/18 04:15 Troponin I < 0.04 ng/mL (<0.49) 03/10/18 15:07 Total Protein 6.3 g/dL (6.7-8.2) L 03/12/18 04:15 Albumin 4.0 g/dL (3.2-5.5) 03/12/18 04:15 Globulin 2.3 g/dL (2.1-4.2) 03/12/18 04:15 Albumin/Globulin Ratio 1.7 (1.0-2.2) 03/12/18 04:15 Lipase 38 U/L (22-51) 03/10/18 15:07 Urine Color YELLOW 03/10/18 20:00 Urine Clarity CLOUDY (CLEAR) 03/10/18 20:00 Urine pH >=9.0 PH (5.0-7.5) H 03/10/18 20:00 Ur Specific [place] 1.010 (1.002-1.030) 03/10/18 20:00 Urine Protein TRACE mg/dL (NEGATIVE) 03/10/18 20:00 Urine Glucose (UA) NEGATIVE mg/dL (NEGATIVE) 03/10/18 20:00 Urine Ketones 15 mg/dL (NEGATIVE) H 03/10/18 20:00 Urine Occult Blood NEGATIVE (NEGATIVE) 03/10/18 20:00 Urine Nitrite NEGATIVE (NEGATIVE) 03/10/18 20:00 Urine Bilirubin NEGATIVE (NEGATIVE) 03/10/18 20:00 Urine Urobilinogen 2 E.U./dL (NORMAL) H 03/10/18 20:00 Ur Leukocyte Esterase NEGATIVE (NEGATIVE) 03/10/18 20:00 Urine RBC None Seen /HPF (0-5) 03/10/18 20:00 Urine WBC 0-3 /HPF (0-3) 03/10/18 20:00 Ur Squamous Epith Cells NONE SEEN (<= Few) 03/10/18 20:00 Amorphous Sediment Moderate /LPF 03/10/18 20:00 Urine Bacteria Few /HPF (None Seen) 03/10/18 20:00 Urine Mucus Few Strands 03/10/18 20:00 Ur Microscopic Review INDICATED 03/10/18 20:00 Urine Culture Comments NOT INDICATED 03/10/18 20:00 Salicylates < 6.0 mg/dL 03/10/18 15:07 Urine Opiates Screen NEGATIVE (NEGATIVE) 03/10/18 20:00 Ur Oxycodone Screen NEGATIVE (NEGATIVE) 03/10/18 20:00 Urine Methadone Screen NEGATIVE (NEGATIVE) 03/10/18 20:00 Ur Propoxyphene Screen NEGATIVE (NEGATIVE) 03/10/18 20:00 Acetaminophen < 10 ug/mL (10-30) L 03/10/18 15:07 Ur Barbiturates Screen NEGATIVE (NEGATIVE) 03/10/18 20:00 Ur Tricyclics Screen NEGATIVE (NEGATIVE) 03/10/18 20:00 Ur Phencyclidine Scrn NEGATIVE (NEGATIVE) 03/10/18 20:00 Ur Amphetamine Screen NEGATIVE (NEGATIVE) 03/10/18 20:00 U Methamphetamines Scrn NEGATIVE (NEGATIVE) 03/10/18 20:00 U Benzodiazepines Scrn POSITIVE (NEGATIVE) H 03/10/18 20:00 Urine Cocaine Screen NEGATIVE (NEGATIVE) 03/10/18 20:00 U Cannabinoids Screen NEGATIVE (NEGATIVE) 03/10/18 20:00 Ethyl Alcohol < 5.0 mg/dL 03/10/18 15:07 ABX Reporting Has patient been on IV antibiotics over the past 48 hours?: No
[2018-03-12] MEDS: IBUPROFEN 600 MG TABLET PO SCH ×2 (18:30→23:40)
[2018-03-12] MEDS: ONDANSETRON ODT 4 MG TABLET TL SCH ×2 (18:30→23:41)
[2018-03-12] MEDS: CALCIUM CARBONATE CHEW 500 MG TABLET PO SCH ×2 (18:30→20:26)
[2018-03-12] MEDS ORDERED: chlorproMAZINE 25 MG TABLET PO PRN (23:07)
[2018-03-13 05:37] LABS: BASOPHILS # (AUTO) 0.1 10^3/uL (0.0-0.1); BASOPHILS % (AUTO) 1.1 %; EOSINOPHILS # (AUTO) 0.4 10^3/uL (0.0-0.7); EOSINOPHILS % (AUTO) 7.5 %; HGB - HEMOGLOBIN 14.3 g/dL (14.0-18.0); LYMPHOCYTES % (AUTO) 21.3 %; MEAN CORPUSCULAR HGB CONC 33.2 g/dL (32.0-36.0); MEAN CORPUSCULAR VOLUME 96.5 fL (80.0-94.0); MEAN PLATELET VOLUME 8.6 fL (7.4-11.4); MONOCYTES # (AUTO) 0.5 10^3/uL (0.0-1.0); MONOCYTES % (AUTO) 10.7 %; NEUTROPHILS # (AUTO) 2.8 10^3/uL (1.5-6.6); NEUTROPHILS % (AUTO) 59.4 %; PLT - PLATELET COUNT 117 10^3/uL (130-450); RED BLOOD COUNT 4.47 10^6/uL (4.70-6.10); RED CELL DISTRIBUTION WIDTH 13.3 % (12.0-15.0); WHITE BLOOD COUNT 4.7 x10^3/uL (4.8-10.8)
[2018-03-13 05:44] LABS: ALBUMIN/GLOBULIN RATIO 1.6 (1.0-2.2); BILIRUBIN,TOTAL 1.1 mg/dL (0.2-1.0); CREATININE 0.7 mg/dL (0.6-1.2); MAGNESIUM 2.1 mg/dL (1.7-2.8); PHOSPHORUS 3.7 mg/dL (2.5-4.6); TOTAL PROTEIN 6.5 g/dL (6.7-8.2)
[2018-03-13] MEDS: IBUPROFEN 600 MG TABLET PO SCH ×2 (06:23→13:35)
[2018-03-13] MEDS: ONDANSETRON ODT 4 MG TABLET TL SCH ×2 (06:23→13:35)
[2018-03-13] MEDS: D5NS W/20 MEQ KCL 1,000 ML IV SCH (06:23)
[2018-03-13] MEDS: PANTOPRAZOLE 40 MG VIAL IVP SCH (08:30)
[2018-03-13] MEDS: CALCIUM CARBONATE CHEW 500 MG TABLET PO SCH (08:30)
[2018-03-13] MEDS: PRENATAL VITAMIN TABLET PO SCH (08:30)
[2018-03-13] MEDS: SODIUM CHLORIDE FLUSH 0.9% 10 ML SYRINGE IVP SCH ×2 (08:30→17:56)
[2018-03-13] MEDS: THIAMINE INJ 100 MG, FOLIC ACID INJ 1 MG in SODIUM CHLORIDE 0.9% 100ML 100 ML IV SCH (09:30)
[2018-03-13 15:44] VITALS: BP 159/96
--- NOTE | 2018-03-13 16:05 | CT Preliminary Report ---
Exam: CT ABDOMEN W/O IMPRESSION: Steatotic liver. [facility] SITE ID: [id number]
--- NOTE | 2018-03-13 16:06 | CT Report ---
EXAM: CT ABDOMEN EXAM DATE: 03/13/2018 11:50 AM. CLINICAL HISTORY: Rising LFTs. COMPARISON: None. TECHNIQUE: Routine helical CT imaging was performed through the abdomen. IV contrast: None. Enteric contrast: None. Reconstruction: Coronal and sagittal. In accordance with CT protocol optimization, one or more of the following dose reduction techniques w ere utilized for this exam: automated exposure control, adjustment of mA and/or KV based on patient s ize, or use of iterative reconstructive technique. FINDINGS: Lung Bases: Unremarkable. Liver: Diffuse low-attenuation of the hepatic parenchyma relative to the spleen, indicating steatosis . Gallbladder/Bile Ducts: Unremarkable. No visualized stones or biliary ductal dilatation. Spleen: Normal size. No contour deforming mass. Pancreas: No contour deforming mass. Adrenal Glands: Normal. Kidneys and Visualized Ureters: No contour deforming mass. No stones, hydronephrosis, or hydroureter. Peritoneal Cavity/Bowel: The stomach and visualized small bowel and colon are grossly unremarkable, w ithout evident focal wall thickening or adjacent mesenteric fat stranding to suggest acute inflammato ry process, or evidence of bowel obstruction. No free fluid, pneumoperitoneum, or hao adenopathy. Vasculature: Unremarkable. Bones: Severe degenerative disk disease at L5-S1. Minimal degenerative retrolisthesis of L2 on L3. No acute bony abnormality. Other: None. IMPRESSION: Steatotic liver. [facility] Referring Provider Line: [phone] SITE ID: [id number]
[2018-03-13] MEDS ORDERED: LORazepam 0.5 MG TABLET PO ONE (16:36)
--- NOTE | 2018-03-13 17:56 | Discharge Plan ---
Discharge Plan Disposition: 01 Home, Self Care Condition: Stable Prescriptions: LORazepam [Ativan] 0.5 mg PO Q8H PRN #10 tablet PRN Reason: Alcohol Withdrawal Diet: Regular Activity Restrictions: Activity as Tolerated Shower Restrictions: No Driving Restrictions: No Instruction Topics: Alcoholism Get Help, Addiction Alcohol Additional Instructions or Follow Up instructions: Start taking Thiamine and B12 vitamins. Stop drinking alcohol. Seek help with the addiction with a counselor or rehab center. Use the Ativan for shakes and anxiety. See your doctor for refills. No Smoking: If you smoke, Please STOP! Call for help. Follow-up with: Laura Dodson ARNP [Primary Care Provider] -
--- NOTE | 2018-03-18 08:12 | DISCHARGE SUMMARY ---
Physician: Mercedes Avalos MD DATE OF ADMISSION: 03/10/2018 DATE OF DISCHARGE: 03/13/2018 HISTORY OF PRESENT ILLNESS: This is a 42-year-old white male with a history of alcohol abuse, prior alcoholic psychosis and DTs, prior admissions to inpatient alcohol detoxification. The patient states he started to have increasing alcohol intake over several months then binge drinking and then excessive alcohol use "all day long" over the past several weeks. He realized that he needed to quit, since he was "hiding from his family when he was drinking." He, therefore, stopped completely and the following day, started to have shakes and hallucinations, was brought to the emergency room by his mother. There was a question of whether he had an alcohol seizure or shaking from DTs when in the emergency room. He was placed in the ICU for management of alcohol withdrawal on a CIWY protocol. HOSPITAL COURSE/DISCHARGE DIAGNOSES 1. Alcoholic DTs. The patient had no further episodes of seizure activity or DTs. He required approximately 2-1/2 days of Ativan given by CIWA protocol and then was able to awaken and report the above history and he confirmed hallucinations. The patient decided to go home and consider his options again. He was given a 3-day supply of Ativan p.r.n. 2. Hypertension. The patient required medications for hypertension during his withdrawal. 3. Abnormal liver function tests. The patient's admitting LFTs showed AST of 227, ALT 198, bilirubin 2.3. His GGT was not very elevated at 55 however, consistent with recent alcohol binging history. At discharge, his AST was 181, ALT 213, bilirubin 1.1. LABORATORY AND IMAGING: The patient had abdominal CT scanning that showed steatohepatitis and severe degenerative disk disease of L5 through S1. All other labs and reports are summarized above. ALLERGIES: NONE. MEDICATIONS AT TIME OF DISCHARGE: Ativan 0.5 mg t.i.d. p.r.n., a total of 10 tablets were ordered PHYSICAL EXAMINATION AT DISCHARGE VITAL SIGNS: Blood pressure 159/96, heart rate of 72, afebrile, 100% saturation on room air. HEENT: Unremarkable. No icterus. No nystagmus. NECK: Without JVD or carotid bruits. CHEST: Clear. HEART: Sounds normal. No murmur. ABDOMEN: Soft, nontender. No organomegaly. EXTREMITIES: Without edema. NEUROLOGIC: Intact, no asterixis. FOLLOWUP: The patient was provided a contact for a new primary care provider in [place] on [address]. He was advised to follow up in the next week. CODE STATUS: FULL CODE. TIME TO COMPLETE THIS ENTIRE DISCHARGE, CHART REVIEW, AND MEDICATIONS: 30 minutes. TD: 03/17/2018 17:34 MTDMagdalena
== END 2018-03-13 18:20 | disposition home or self-care (01) | DRG 897 ==
LOC: EDUNIT# → ED 14:32 → ICU 17:48
PROVIDERS: ADMIT Internal Medicine; ATTEND Internal Medicine
DX: F10.239 Alcohol dependence with withdrawal, unspecified (principal); G40.89 Other seizures; R17 Unspecified jaundice; I10 Essential (primary) hypertension; R51 Headache; R06.6 Hiccough; R79.89 Other specified abnormal findings of blood chemistry; Z87.891 Personal history of nicotine dependence
CPT/HCPCS: 36415; 74150; 80053; 80306; 80307; 80320; 80329; 81001; 81003; 82977; 83690; 83735; 84100; 84484; 85025; 85610; 87086; 87150; 96365; 96366; 96375; 99284; 99285

== ENCOUNTER 2018-03-22 08:00 | Outpatient (CLI) | payer MEDICAID ==
[2018-03-23 12:03] LABS: ALBUMIN 4.5 g/dL (3.2-5.5); ALKALINE PHOSPHATASE 40 IU/L (42-121); ALT ALANINE AMINOTRANSFERASE 111 IU/L (10-60); AST ASPARTATE AMINOTRANSFERASE 48 IU/L (10-42); BILIRUBIN,TOTAL 0.4 mg/dL (0.2-1.0); TOTAL PROTEIN 6.9 g/dL (6.7-8.2)
[2018-03-23 12:08] LABS: BILIRUBIN,DIRECT < 0.1 mg/dL (0.1-0.5)
== END 2018-03-22 08:01 | disposition home or self-care (01) ==
LOC: LAB.S 08:00
PROVIDERS: ATTEND Nurse Practitioner Family
DX: R94.5 Abnormal results of liver function studies (principal); K75.81 Nonalcoholic steatohepatitis (NASH)
CPT/HCPCS: 36415; 80076

== ENCOUNTER 2021-05-20 12:21 | Emergency (ER) | payer MEDICAID ==
[2021-05-20 12:45] VITALS: BP 123/98
[2021-05-20 13:28] LABS: BASOPHILS # (AUTO) 0.1 10^3/uL (0.0-0.1); BASOPHILS % (AUTO) 0.9 %; EOSINOPHILS # (AUTO) 0.1 10^3/uL (0.0-0.7); EOSINOPHILS % (AUTO) 1.2 %; HCT - HEMATOCRIT 43.2 % (42.0-52.0); HGB - HEMOGLOBIN 15.1 g/dL (14.0-18.0); LYMPHOCYTES % (AUTO) 26.2 %; MEAN CORPUSCULAR HEMOGLOBIN 29.9 pg (27.0-31.0); MEAN CORPUSCULAR VOLUME 85.5 fL (80.0-94.0); MEAN PLATELET VOLUME 9.8 fL (7.4-11.4); MONOCYTES # (AUTO) 0.6 10^3/uL (0.0-1.0); MONOCYTES % (AUTO) 7.6 %; NEUTROPHILS # (AUTO) 4.9 10^3/uL (1.5-6.6); PLT - PLATELET COUNT 302 10^3/uL (130-450); RED BLOOD COUNT 5.05 10^6/uL (4.70-6.10); WHITE BLOOD COUNT 7.7 x10^3/uL (4.8-10.8)
--- NOTE | 2021-05-20 13:40 | ED Physician Documentation ---
PD HPI MHE - Stated complaint Stated Complaint: MHE - Chief complaint Chief Complaint: MHE - History obtained from History obtained from: Patient - History of Present Illness Pain level max: 0 Pain level now: 0 - Additional information Additional information: Patient is a 45-year-old male who presents to the emergency department complaint of increasing auditory hallucinations. Its been increasing over the past several months. He has had these for years, but are worsening. Has had psychiatric hospitalizations as early as such early 20s. Does not have a counselor or psychiatrist. He used to go to the walk-in clinic on [facility], but they quit taking his insurance that has not had care. He states last night he ran out of his house barefoot and ran [place] the [place]. He is concerned that he may inadvertently hurt himself trying to get away from the voices. He states he has put Styrofoam in his ears as well, but still hears the voices. He states he has not suicidal or homicidal, but is concerned that he will accidentally harm himself because of the voices. Denies any alcohol or drug use. Requesting hospitalization. Does not have a counselor or psychiatrist currently Review of Systems Ten Systems: 10 systems reviewed and negative Constitutional: denies: Fever, Chills Nose: denies: Rhinorrhea / runny nose, Congestion GI: denies: Vomiting, Diarrhea Skin: denies: Rash Musculoskeletal: denies: Neck pain, Back pain Neurologic: denies: Headache PD PAST MEDICAL HISTORY - Past Medical History Cardiovascular: None Respiratory: None Neuro: None Endocrine/Autoimmune: None GI: None : None HEENT: None Psych: None Musculoskeletal: None Derm: None - Present Medications Home Medications: Ambulatory Orders Medication Instructions Recorded Confirmed LORazepam [Ativan] 0.5 mg PO Q8H PRN #10 tablet 03/13/18 QUEtiapine [SEROquel] 25 mg PO QPM #7 tablet 05/20/21 - Allergies Allergies/Adverse Reactions: Allergies Allergy/AdvReac Type Severity Reaction Status Date / Time No Known Drug Allergies Allergy Verified 05/20/21 12:39 - Social History Smoking Status: Former smoker PD ED PE NORMAL - Vitals Vital signs reviewed: Yes - General General: Alert and oriented X 3, No acute distress, Well developed/nourished - HEENT HEENT: PERRL, Moist mucous membranes - Neck Neck: Supple, no meningeal sign - Cardiac Cardiac: RRR, Strong equal pulses - Respiratory Respiratory: No respiratory distress, Clear bilaterally - Abdomen Abdomen: Soft, Non tender, Non distended - Derm Derm: Warm and dry - Extremities Extremities: No edema - Neuro Neuro: Alert and oriented X 3, cut off sawyer 2-12 intact, No motor deficit, No sensory deficit, Normal speech Eye Opening: Spontaneous Motor: Obeys Commands Verbal: Oriented GCS Score: 15 - Psych Psych: Normal mood, Normal affect Results - Vitals Vitals: Vital Signs - 24 hr 05/20/21 12:39 Temperature 36.8 C Heart Rate 110 H Respiratory 16 Rate Blood Pressure 123/98 H O2 Saturation 99 Oxygen O2 Source Room air - Labs Labs: Laboratory Tests 05/20/21 05/20/21 05/20/21 13:15 13:15 13:15 WBC 7.7 RBC 5.05 Hgb 15.1 Hct 43.2 MCV 85.5 MCH 29.9 MCHC 35.0 RDW 12.0 Plt Count 302 MPV 9.8 Neut # (Auto) 4.9 Lymph # (Auto) 2.0 [place] # (Auto) 0.6 Eos # (Auto) 0.1 Baso # (Auto) 0.1 Absolute Nucleated RBC 0.00 Nucleated RBC % 0.0 Sodium 135 Potassium 3.9 Chloride 104 Carbon Dioxide 22 Anion Gap 9.0 BUN 19 Creatinine 1.0 Estimated GFR (MDRD) 80 L Glucose 100 Calcium 9.6 Total Bilirubin 0.9 AST 26 ALT 20 Alkaline Phosphatase 47 Total Protein 7.0 Albumin 4.9 Globulin 2.1 Albumin/Globulin Ratio 2.3 H Lipase 28 TSH 0.53 Salicylates < 6.0 Acetaminophen < 10 L Ethyl Alcohol < 5.0 PD MEDICAL DECISION MAKING - ED course Complexity details: reviewed results, re-evaluated patient, considered differential, d/w patient, d/w family ED course: Patient initially was agreeable to hospitalization, he then refused hospitalization. He does not appear gravely disabled at this time. His mother is comfortable taking him home, though she would prefer he be admitted. The patient is alert, oriented. Well-groomed. He is not suicidal or homicidal. Therefore we will place him on Seroquel for home as he has been on this before. We encouraged him to follow-up closely with a mental health professional. He will return if he worsens. Patient counseled regarding signs and symptoms for which I believe and urgent re-evaluation would be necessary. Patient with good understanding of and agreement to plan and is comfortable going home at this time This document was made in part using voice recognition software. While efforts are made to proofread this document, sound alike and grammatical errors may mary annu r. Departure - Departure Disposition: 01 Home, Self Care Clinical Impression: Auditory hallucinations Condition: Good Instructions: ED Psychosis Follow-Up: your,doctor within 3 days [Other] Prescriptions: QUEtiapine [SEROquel] 25 mg PO QPM #7 tablet Comments: Follow-up with your doctor for further care. We will prescribe you a short course of Seroquel to help you until you can see your doctor. You can also contact the [facility] stabilization facility for further care. [facility] [address] [address] Discharge Date/Time: 05/20/21 14:54
[2021-05-20 13:44] LABS: ACETAMINOPHEN < 10 ug/mL (10-30); ALBUMIN 4.9 g/dL (3.2-5.5); ALBUMIN/GLOBULIN RATIO 2.3 (1.0-2.2); ALKALINE PHOSPHATASE 47 IU/L (42-121); ALT ALANINE AMINOTRANSFERASE 20 IU/L (10-60); AST ASPARTATE AMINOTRANSFERASE 26 IU/L (10-42); BILIRUBIN,TOTAL 0.9 mg/dL (0.2-1.0); BUN - BLOOD UREA NITROGEN 19 mg/dL (6-20); CALCIUM 9.6 mg/dL (8.5-10.3); CARBON DIOXIDE - CO2 22 mmol/L (21-32); CHLORIDE 104 mmol/L (101-111); ETOH - ETHANOL < 5.0 mg/dL; GFR - MDRD 80 (>89); GLUCOSE 100 mg/dL (70-100); LIPASE 28 U/L (22-51); POTASSIUM 3.9 mmol/L (3.5-5.0); SALICYLATE < 6.0 mg/dL; SODIUM 135 mmol/L (135-145)
[2021-05-20] MEDS ORDERED: QUEtiapine 25 MG TABLET PO STA (14:16)
[2021-05-20] MEDS ORDERED: OLANZapine ODT 5 MG TABLET TL STA (14:16)
== END 2021-05-20 14:54 | disposition home or self-care (01) ==
LOC: ED 12:21
DX: R44.0 Auditory hallucinations (principal)
CPT/HCPCS: 36415; 80053; 80307; 80320; 80329; 83690; 84443; 85025; 99283; 99284; A9270

== ENCOUNTER 2022-04-19 19:36 | Emergency (ER) | payer MEDICAID ==
--- NOTE | 2022-04-19 20:47 | ED Physician Documentation ---
PD HPI LOWER EXT INJURY - Stated complaint Stated Complaint: LT ANKLE ROLL - Chief complaint Chief Complaint: Trauma Ext - History obtained from History obtained from: Patient - Additional information Additional information: Patient is a 46-year-old male presenting for left ankle injury that occurred a round 530 this evening. Patient was weed whacking on an embankment when he rolled his ankle and fell back. He did not hit his head. He reports it was a soft fall but did hear a crunch. He has pain to the left ankle and is not been able to bear weight on it. He denies previous injury to this area. He has not taken anything for the pain. The pain is sharp. It does not radiate elsewhere. It is worse with attempts at ambulation and better at rest.He denies taking a blood thinner. Review of Systems Nose: denies: Congestion Throat: denies: Sore throat Cardiac: denies: Chest pain / pressure GI: denies: Abdominal Pain Skin: denies: Rash, Abrasion (s) Musculoskeletal: reports: Extremity pain, Joint pain, Joint swelling Neurologic: denies: Head injury PD PAST MEDICAL HISTORY - Past Medical History Cardiovascular: None Respiratory: None Neuro: None Endocrine/Autoimmune: None GI: None : None HEENT: None Psych: None Musculoskeletal: None Derm: None - Present Medications Home Medications: Ambulatory Orders Medication Instructions Recorded Confirmed LORazepam [Ativan] 0.5 mg PO Q8H PRN #10 tablet 03/13/18 QUEtiapine [SEROquel] 25 mg PO QPM #7 tablet 05/20/21 Oxycodone HCl/Acetaminophen 1 each PO Q6H PRN #14 tablet 04/19/22 [Percocet 5-325 mg Tablet] - Allergies Allergies/Adverse Reactions: Allergies Allergy/AdvReac Type Severity Reaction Status Date / Time No Known Drug Allergies Allergy Verified 05/20/21 12:39 - Social History Does the pt smoke?: No Smoking Status: Former smoker PD ED PE NORMAL - General General: Alert and oriented X 3, No acute distress, Well developed/nourished - HEENT HEENT: Atraumatic, Moist mucous membranes - Neck Neck: Supple, no meningeal sign - Cardiac Cardiac: RRR, Strong equal pulses - Respiratory Respiratory: No respiratory distress, Clear bilaterally - Derm Derm: Warm and dry - Extremities Extremities: Other (Tenderness and swelling to left lateral malleolus, no open wounds, pedal pulses intact, motor, sensation preserved distally, No tenderness more proximally in the lower extremity, no tenderness to the knee or proximal fibula) PD ED PE EXPANDED - Extremities Extremities: Other (Compartments of lower extremity are soft.) MARIZOL LE visual: 1 - swelling, tenderness Results - Vitals Vitals: Vital Signs - 24 hr 04/19/22 04/19/22 19:52 21:26 Temperature 36.8 C 36.6 C Heart Rate 104 H 88 Respiratory 16 16 Rate Blood Pressure 146/112 H 128/88 H O2 Saturation 98 100 Oxygen O2 Source Room air PD MEDICAL DECISION MAKING - ED course Complexity details: reviewed results, re-evaluated patient, d/w patient, d/w family ED course: Patient with left ankle injury. No head trauma. Neurovascularly intact.X-ray with comminuted left fibula fracture. Splint was applied And crutches given. Patient is aware to be nonweightbearing and the need for close orthopedic surgery follow-up given fracture pattern.Family is at the bedside and also present for this conversation and recommendations for close orthopedic follow- up. He is aware of strict return precautions.No pain elsewhere in lower extremity. Departure - Departure Disposition: 01 Home, Self Care Clinical Impression: Closed left fibular fracture Qualifiers: Encounter type: initial encounter Fibula location: distal Fracture morphology: other fracture Qualified Code(s): S82.832A - Other fracture of upper and lower end of left fibula, initial encounter for closed fracture Condition: Stable Instructions: ED Fx Ankle Lateral Malleolus Prescriptions: Oxycodone HCl/Acetaminophen [Percocet 5-325 mg Tablet] 1 each PO Q6H PRN #14 tablet PRN Reason: pain Comments: You were evaluated for an injury to your left ankle and found to have a comminuted fracture of your left fibula.We have applied a splint and given you a pair of crutches. Please do not put any weight on this leg Until you are seen in follow-up by an orthopedic surgeon. Because of the nature of this fracture you should have close follow-up with an orthopedic surgeon. Please call Dr. Hagan's office on April 22 For close follow-up. If you have any worsening pain that is not controlled with your medication then please return to the emergency department. Please continue to elevate the leg as this may help with swelling. I will prescribe a course of narcotic medication which has been sent to [facility] in [place]. I am prescribing a short course of narcotic pain medication for you. These are potentially dangerous and addictive medications that should be used carefully. These medications may constipate you. Take an xcst-eag-efagsvd stool softener (docusate) twice daily with plenty of water while taking these medications. If you go 24 hours without a bowel movement, take xmwi-swu-djvvkwa miralax, per package instructions. Do not drink or drive while taking these medications. If you received narcotic or sedating medications while in the emergency department, do not drive for 24 hours. Store this medication in a safe, secure place and out of reach of children. It is a violation of federal law to give or sell this medication to another person or to use in a manner other than prescribed. The ED will not refill narcotic prescriptions, including prescriptions lost or stolen. To dispose of unwanted medications: 1. [facility] at [address] [facility] [address] in [place] has a medication drop box. They accept prescription medications (in pill form) Thursday through Thursday 9:00 a.m. to 5:00 p.m. 2. The [facility] [employer] accepts prescription medications (in pill form only) for disposal year round. Call for more i nformation. 3. Contact the [facility] for the next [facility] sponsored prescription drug collection event. , [phone], or [phone]; Note that many narcotic pain relievers also contain Tylenol/acetaminophen. Please ensure that your total dose of acetaminophen from all sources does not exceed 3 g (3000 mg) per day. Discharge Date/Time: 04/19/22 21:26
[2022-04-19] MEDS: oxyCODONE/ACET 5/325 Prepack 4 PO STA (20:48)
--- NOTE | 2022-04-19 21:05 | XRAY Report ---
PROCEDURE: Ankle 3 View LT INDICATIONS: Trauma TECHNIQUE: 3 views of the ankle were acquired. COMPARISON: None. FINDINGS: Bones: There is a minimally displaced spiral fracture of the distal fibula with intra-articular invol vement. Ankle mortise is slightly widened medially and anteriorly. No suspicious bony lesions. Soft tissues: No tibiotalar joint effusion. Achilles tendon appears normal. Soft tissue swelling ov er the lateral malleolus. IMPRESSION: Minimally displaced spiral fracture of the distal fibula. Reviewed by: Magalis Yousif MD on 04/19/2022 9:04 PM PDT Approved by: Magalis Yousif MD on 04/19/2022 9:04 PM PDT Station ID: [id number]
[2022-04-19 21:27] VITALS: BP 128/88
== END 2022-04-19 21:26 | disposition home or self-care (01) ==
LOC: ED 19:36
DX: S82.832A Other fracture of upper and lower end of left fibula, initial encounter for closed fracture (principal); W18.39XA Other fall on same level, initial encounter; Y93.H2 Activity, gardening and landscaping; Y92.828 Other wilderness area as the place of occurrence of the external cause; Z87.891 Personal history of nicotine dependence
CPT/HCPCS: 99283; 99284

== ENCOUNTER 2022-05-06 08:00 | Outpatient (CLI) | payer MEDICAID ==
--- NOTE | 2022-05-06 13:47 | XRAY Report ---
PROCEDURE: Ankle 3 View LT INDICATIONS: ANKLE FX TECHNIQUE: 3 views of the ankle were acquired. COMPARISON: X-ray ankle 04/19/2022 FINDINGS: Bones: There is a comminuted spiral fracture of the distal fibula. There is increased diastases of fr acture fragments particularly the inferior posterior aspect compared to prior exam. Ankle mortise is normally aligned. No suspicious bony lesions. Soft tissues: No tibiotalar joint effusion. Achilles tendon appears normal. IMPRESSION: Minimally displaced bilateral fractures of the distal fibula demonstrating increased diastases betwee n fracture fragments on current exam. Reviewed by: Ariadna Ramirez MD on 05/06/2022 1:45 PM PDT Approved by: Ariadna Ramirez MD on 05/06/2022 1:45 PM PDT Station ID: [id number]
== END 2022-05-06 23:59 | disposition home or self-care (01) ==
LOC: DI.WOS 08:00
PROVIDERS: ATTEND Orthopaedic Surgery
DX: S82.442D Displaced spiral fracture of shaft of left fibula, subsequent encounter for closed fracture with routine healing (principal)

== ENCOUNTER 2022-07-08 08:00 | Outpatient (CLI) | payer MEDICAID ==
--- NOTE | 2022-07-08 16:26 | XRAY Report ---
PROCEDURE: Ankle 3 View LT INDICATIONS: LEFT ANKLE FX TECHNIQUE: 3 views of the ankle were acquired. COMPARISON: 06/03/2002 FINDINGS: Bones: No fractures or dislocations. Moderately displaced oblique fracture of the distal fibula. An kle mortise is normally aligned. No suspicious bony lesions. Soft tissues: No tibiotalar joint effusion. Achilles tendon appears normal. IMPRESSION: No change in distal fibular fracture. Reviewed by: Levon Estevez MD on 07/08/2022 4:25 PM PDT Approved by: Levon Estevez MD on 07/08/2022 4:25 PM PDT Station ID: [id number]
== END 2022-07-08 23:59 | disposition home or self-care (01) ==
LOC: DI.WOS 08:00
PROVIDERS: ATTEND Orthopaedic Surgery
DX: S82.432A Displaced oblique fracture of shaft of left fibula, initial encounter for closed fracture (principal)

== ENCOUNTER 2022-11-17 12:13 | Emergency (ER) | payer MEDICAID ==
--- NOTE | 2022-11-17 12:57 | XRAY Report ---
PROCEDURE: Tib/Fib RT INDICATIONS: Trauma TECHNIQUE: 2 views of the tibia and fibula were acquired. COMPARISON: None FINDINGS: Bones: No fractures or dislocations. No suspicious bony lesions. Soft tissues: No suspicious soft tissue calcifications or masses. IMPRESSION: No visualized acute fracture or dislocation. However, occult injury cannot be excluded. Recommend jennifer rt interval imaging follow-up in 7-10 days as clinically indicated for additional evaluation. Reviewed by: Ariadna Ramirez MD on 11/17/2022 12:56 PM [facility] Approved by: Ariadna Ramirez MD on 11/17/2022 12:56 PM [facility] Station ID: [id number]
--- NOTE | 2022-11-17 14:21 | ED Physician Documentation ---
PD HPI LOWER EXT INJURY - Stated complaint Stated Complaint: R LEG INJ - Chief complaint Chief Complaint: Trauma Ext - History obtained from History obtained from: Patient - History of Present Illness PD HPI LOW EXT INJURY LOCATION: Right, Lower leg Type of injury: Fall Where injury occurred: Other (Hiking) Improved by: Nothing Worsened by: Moving, Palpating Associated symptoms: No: Weakness, Numbness, Tingling, Swelling, Discolored, Other Contributing factors: No: Anticoagulated, Prior ortho surgery, Prosthetic joint, Work related, Other - Additional information Additional information: 47-year-old male presents with right lower leg pain after a fall while hiking yesterday. He states he fell and twisted and fell onto the proximal tibia area. He has a prior injury to the other leg and was concerned that he may have broken his leg. He presents requesting x-ray. He is able to ambulate notes uncomfortable. He has not attempted any treatment for this. PD PAST MEDICAL HISTORY - Past Medical History Cardiovascular: None Respiratory: None Neuro: None Endocrine/Autoimmune: None GI: None : None HEENT: None Psych: None Musculoskeletal: None Derm: None - Present Medications Home Medications: Ambulatory Orders Medication Instructions Recorded Confirmed LORazepam [Ativan] 0.5 mg PO Q8H PRN #10 tablet 03/13/18 QUEtiapine [SEROquel] 25 mg PO QPM #7 tablet 05/20/21 Oxycodone HCl/Acetaminophen 1 each PO Q6H PRN #14 tablet 04/19/22 [Percocet 5-325 mg Tablet] - Allergies Allergies/Adverse Reactions: Allergies Allergy/AdvReac Type Severity Reaction Status Date / Time No Known Drug Allergies Allergy Verified 11/17/22 12:25 - Social History Does the pt smoke?: No Smoking Status: Former smoker PD ED PE NORMAL - Vitals Vital signs reviewed: Yes - General General: Alert and oriented X 3, No acute distress, Well developed/nourished - Derm Derm: Normal color, Warm and dry, No rash - Extremities Extremities: No deformity, Normal ROM s pain, Other (Proximal right lower leg just distal to the knee. There is perhaps mild bruising, no erythema or other signs of infection, no obvious deformity.) - Neuro Neuro: Alert and oriented X 3 Eye Opening: Spontaneous Motor: Obeys Commands Verbal: Oriented GCS Score: 15 - Psych Psych: Normal mood, Normal affect Results - Vitals Vitals: Vital Signs - 24 hr 11/17/22 11/17/22 12:21 14:26 Temperature 36.7 C Heart Rate 85 86 Respiratory 16 14 Rate Blood Pressure 152/99 H 116/78 O2 Saturation 100 99 Oxygen O2 Source Room air PD Medical Decision Making - ED course Complexity details: reviewed results, re-evaluated patient, d/w patient ED course: 47-year-old male presented with right lower leg pain after fall yesterday. Differentials been considered included fracture or soft tissue contusion. The patient is well-appearing on physical exam, there is no signs of infection or cellulitis. I reviewed x-ray which is negative. Patient was advised to utilize cool compress, ibuprofen and Tylenol as needed, may use mickey wrap if helpful. Advised to see PCP if no improvement in next 2 to 3 weeks. Departure - Departure Disposition: 01 Home, Self Care Clinical Impression: Injury of lower leg Qualifiers: Encounter type: initial encounter Laterality: right Qualified Code(s): S89.91XA - Unspecified injury of right lower leg, initial encounter Condition: Good Instructions: ED Contusion Lower Ext Comments: You presented with a right leg injury. Your physical exam is reassuring, your x-ray does not show any fractures. This may be a soft tissue contusion/bruise. You may use a cool compress, ibuprofen or Tylenol as needed for pain and an Mickey wrap as needed. You may weight-bear as tolerated but have crutches and the event that it is uncomfortable. Please follow-up with your primary doctor if new or worsening symptoms. Discharge Date/Time: 11/17/22 14:26
[2022-11-17 14:27] VITALS: BP 116/78
== END 2022-11-17 14:26 | disposition home or self-care (01) ==
LOC: ED 12:13
DX: S89.91XA Unspecified injury of right lower leg, initial encounter (principal); W01.0XXA Fall on same level from slipping, tripping and stumbling without subsequent striking against object, initial encounter; Y93.01 Activity, walking, marching and hiking; Z87.891 Personal history of nicotine dependence
CPT/HCPCS: 99283